=== PATIENT | female | born 1970 | race American Indian/Alaskan Native ===

== ENCOUNTER 2021-01-20 14:16 | Emergency (ER) | payer MEDICAID ==
[2021-01-20] MEDS ORDERED: predniSONE 20 MG TAB PO ONE (15:21)
[2021-01-20] MEDS ORDERED: traMADol 50 MG TAB PO ONE (15:21)
[2021-01-20] MEDS ORDERED: CYCLOBENZAPRINE 10 MG TAB PO ONE (15:21)
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
[2021-01-20 16:10] VITALS: BP 124/80
== END 2021-01-20 16:35 | disposition home or self-care (01) ==
LOC: ED 14:16
DX: M79.18 Myalgia, other site (principal); F17.200 Nicotine dependence, unspecified, uncomplicated; G43.909 Migraine, unspecified, not intractable, without status migrainosus; Z79.899 Other long term (current) drug therapy; Z98.890 Other specified postprocedural states; V49.49XA Driver injured in collision with other motor vehicles in traffic accident, initial encounter; Y92.410 Unspecified street and highway as the place of occurrence of the external cause; Y93.89 Activity, other specified; Y99.8 Other external cause status
CPT/HCPCS: 99282; J7512